=== PATIENT | female | born 1965 | race Caucasian/White ===

== ENCOUNTER 2017-04-16 01:37 | Emergency (ER) | payer OTHER ==
[~2017-04-16] VITALS: Ht 160 cm; Wt 80.7 kg
[2017-04-16 01:37] VITALS: BP_SYST 158
[2017-04-16] MEDS ORDERED: MULT PO (02:03)
[2017-04-16] MEDS ORDERED: LORazepam 2 MG/ML VIAL (FOR ER USE) IM ONE (02:15)
[2017-04-16] MEDS ORDERED: LORazepam 2 MG/ML VIAL (FOR ER USE) IVP ONE (03:30)
[2017-04-16] MEDS ORDERED: NACL 0.9% 1,000 ML IV ONE (03:30)
[2017-04-16 04:04] LABS: CALCIUM 9.8 mg/dL (8.4-11.0); CHLORIDE 106 mmol/L (98-107); CREATININE 0.87 mg/dL (0.55-1.30); GLUCOSE 114 mg/dL (70-99); SODIUM SERUM 135 mmol/L (136-145); UREA NITROGEN, BLOOD 24 mg/dL (8-21)
[2017-04-16 04:05] LABS: BARBITURATE, URINE NEGATIVE (NEG <=200); BENZODIAZEPINE, URINE NEGATIVE (NEG <=150); CANNABINOID, URINE POSITIVE (NEG <=50); COCAINE, URINE NEGATIVE (NEG <=150); METHAMPHETAMINES SCREEN,URINE POSITIVE (NEG <=500); OPIATE, URINE NEGATIVE (NEG <=100); PHENCYCLIDINE SCREEN,URINE NEGATIVE (NEG <=25); UR TRICYCLIC ANTIDEPRESSANTS NEGATIVE (NEG <=300); URINE AMPHETAMINE NEGATIVE (NEG <=500); URINE METHADONE NEGATIVE (NEG <=200); URINE OXYCODONE SCREEN NEGATIVE (NEG <=100); URINE PROPOXYPHENE SCREEN NEGATIVE (NEG <=300)
[2017-04-16 04:07] LABS: ANION GAP < 3 (5-15); GFR AFRICAN AMERICAN 88 mL/min (>90)
[2017-04-16 04:13] LABS: ASPARTATE AMINOTRANSFERASE 19 U/L (10-37); TOTAL BILIRUBIN 0.3 mg/dL (0.0-1.0)
[2017-04-16 04:14] LABS: ALANINE AMINOTRANSFERASE 28 U/L (12-78); ALBUMIN 3.9 g/dL (3.4-4.8)
[2017-04-16 04:20] VITALS: BP_SYST 131
[2017-04-16 04:22] LABS: BASOPHILS % (AUTO) 0.3 % (0.0-2.0); EOSINOPHILS # (AUTO) 0.1 K/uL (0.0-0.4); EOSINOPHILS % (AUTO) 0.9 % (0.0-4.0); HEMATOCRIT 41.9 % (36-48); HEMOGLOBIN 13.9 g/dL (12.0-16.0); LYMPHOCYTES % (AUTO) 31.1 % (20.5-51.5); MEAN CORPUSCULAR HEMOGLOBIN 30 pg (27-31); MEAN CORPUSCULAR HGB CONC 33 % (32-36); MEAN CORPUSCULAR VOLUME 89 fL (79.0-98.0); MONOCYTES # (AUTO) 0.6 K/uL (0.0-1.0); MONOCYTES % (AUTO) 5.7 % (1.7-9.3); NEUTROPHILS # (AUTO) 5.9 K/uL (1.8-7.7); PLATELET COUNT (AUTO) 266 K/uL (130-430); RED CELL DISTRIBUTION WIDTH 13.5 % (9.0-15.0); WHITE BLOOD COUNT (AUTO) 9.6 K/uL (4.8-10.8)
== END 2017-04-16 04:20 | disposition home or self-care (01) ==
LOC: SED 01:37
DX: F12.90 Cannabis use, unspecified, uncomplicated (principal); F15.10 Other stimulant abuse, uncomplicated; R03.0 Elevated blood-pressure reading, without diagnosis of hypertension; Z88.2 Allergy status to sulfonamides
CPT/HCPCS: 36415; 80053; 80307; 85025; 93005; 96361; 96372; 96374; 99285; J2060; J7030

== ENCOUNTER 2022-03-26 18:55 | Inpatient (IN) | payer OTHER ==
[~2022-03-26] VITALS: Ht 160 cm; Wt 84.8 kg
[~2022-03-26 18:55] MED LIST: MULT PO
[2022-03-26 19:27] VITALS: BP_SYST 149
[2022-03-26] MEDS ORDERED: NACL 0.9% 1,000 ML IV ONE (20:15)
[2022-03-26] MEDS ORDERED: ALBUTEROL SULFATE 0.083% 2.5 MG/3 ML VIAL.NEB INH ONE ×3 (20:15→22:45)
[2022-03-26] MEDS ORDERED: methylPREDNISolone SOD SUCC/PF 62.5 MG/ML VIAL IVP ONE (21:00)
[2022-03-26 21:14] LABS: BASOPHILS % (AUTO) 0.3 % (0.0-2.0); EOSINOPHILS # (AUTO) 0.3 K/uL (0.0-0.4); EOSINOPHILS % (AUTO) 4.9 % (0.0-4.0); HEMATOCRIT 39.8 % (36-48); HEMOGLOBIN 13.3 g/dL (12.0-16.0); LYMPHOCYTES # (AUTO) 3.3 K/uL (1.0-5.5); MEAN CORPUSCULAR HEMOGLOBIN 29 pg (27-31); MEAN CORPUSCULAR HGB CONC 33 % (32-36); MEAN CORPUSCULAR VOLUME 86 fL (79.0-98.0); MONOCYTES # (AUTO) 0.5 K/uL (0.0-1.0); NEUTROPHILS # (AUTO) 2.5 K/uL (1.8-7.7); NEUTROPHILS % (AUTO) 38.3 % (40.0-70.0); PLATELET COUNT (AUTO) 239 K/uL (130-430); RED BLOOD CELL COUNT(AUTO) 4.65 MIL/uL (4.2-6.2); RED CELL DISTRIBUTION WIDTH 14.6 % (9.0-15.0); WHITE BLOOD COUNT (AUTO) 6.6 K/uL (4.8-10.8)
[2022-03-26] MEDS ORDERED: IPRATROPIUM BROM 0.5 MG/2.5 ML VIAL.NEB (ATROVENT) INH ONE ×2 (21:30→22:45)
[2022-03-26 21:31] LABS: CREATININE 0.75 mg/dL (0.55-1.30)
[2022-03-26 21:44] LABS: ALBUMIN 3.5 g/dL (3.4-4.8); TOTAL BILIRUBIN 0.2 mg/dL (0.0-1.0)
[2022-03-26 21:54] LABS: LYMPHOCYTES % (AUTO) 49.5 % (20.5-51.5)
[2022-03-26] MEDS ORDERED: MAGNESIUM SULFATE 50 ML IV ONE (22:45)
[2022-03-27] MEDS ORDERED: BUDESONIDE 0.5 MG/2 ML AMPUL.NEB INH ONE
[2022-03-27] MEDS ORDERED: IPRATROPIUM/ALBUTEROL SULFATE 3 ML AMPUL.NEB (DUONEB) INH PRN
[2022-03-27] MEDS ORDERED: cefTRIAXone 1 GM IVPB PREMIX 50 ML IV ONE (02:08)
[2022-03-27] MEDS: cefTRIAXone 1 GM in D5W 50 ML IV SCH (02:19)
[2022-03-27] MEDS ORDERED: AZITHROMYCIN 500 MG/VIAL (ZITHROMAX) IV ONE (02:26)
[2022-03-27] MEDS: AZITHROMYCIN 500 MG in NS 250 ML IV SCH (02:45)
[2022-03-27 03:49] VITALS: BP_SYST 149
[2022-03-27] MEDS ORDERED: BUDESONIDE 0.5 MG/2 ML AMPUL.NEB INH SCH (09:00)
[2022-03-27] MEDS ORDERED: IPRATROPIUM/ALBUTEROL SULFATE 3 ML AMPUL.NEB (DUONEB) INH SCH (09:00)
[2022-03-27] MEDS: ACETAMINOPHEN 325 MG TABLET PO PRN (10:32)
[2022-03-27] MEDS: IPRATROPIUM/ALBUTEROL SULFATE 3 ML AMPUL.NEB (DUONEB) INH SCH ×3 (11:00→19:00)
[2022-03-27 12:12] VITALS: BP_SYST 136
[2022-03-27] MEDS ORDERED: methylPREDNISolone SOD SUCC/PF 62.5 MG/ML VIAL IVP ONE (17:45)
[2022-03-27] MEDS ORDERED: ENOXAPARIN SODIUM 30 MG/0.3 ML SYRINGE ONE (18:21)
[2022-03-27] MEDS: ENOXAPARIN SODIUM 30 MG/0.3 ML SYRINGE SUBCUT SCH (18:24)
[2022-03-27] MEDS: BUDESONIDE 0.5 MG/2 ML AMPUL.NEB INH SCH (19:00)
[2022-03-27 21:00] VITALS: BP_SYST 137
[2022-03-28 01:00] VITALS: BP_SYST 135
[2022-03-28] MEDS: AZITHROMYCIN 500 MG in NS 250 ML IV SCH (01:12)
[2022-03-28] MEDS: cefTRIAXone 1 GM in D5W 50 ML IV SCH ×2 (01:12→23:57)
[2022-03-28] MEDS: IPRATROPIUM/ALBUTEROL SULFATE 3 ML AMPUL.NEB (DUONEB) INH SCH ×4 (07:20→20:27)
[2022-03-28 08:00] VITALS: BP_SYST 129
[2022-03-28] MEDS: ENOXAPARIN SODIUM 30 MG/0.3 ML SYRINGE SUBCUT SCH (09:37)
[2022-03-28] MEDS: methylPREDNISolone SOD SUCC/PF 62.5 MG/ML VIAL IVP SCH ×2 (09:38→21:26)
[2022-03-28 09:55] LABS: ALBUMIN 3.3 g/dL (3.4-4.8); CALCIUM 8.7 mg/dL (8.4-11.0); CREATININE 0.7 mg/dL (0.55-1.30); TOTAL BILIRUBIN 0.3 mg/dL (0.0-1.0)
[2022-03-28 10:28] LABS: BASOPHILS % (AUTO) 0.1 % (0.0-2.0); HEMATOCRIT 38.3 % (36-48); HEMOGLOBIN 12.6 g/dL (12.0-16.0); LYMPHOCYTES % (AUTO) 11.7 % (20.5-51.5); MEAN CORPUSCULAR HEMOGLOBIN 28 pg (27-31); MEAN CORPUSCULAR HGB CONC 33 % (32-36); MEAN CORPUSCULAR VOLUME 86 fL (79.0-98.0); MONOCYTES # (AUTO) 0.6 K/uL (0.0-1.0); MONOCYTES % (AUTO) 3.6 % (1.7-9.3); NEUTROPHILS # (AUTO) 14.2 K/uL (1.8-7.7); NEUTROPHILS % (AUTO) 84.6 % (40.0-70.0); PLATELET COUNT (AUTO) 244 K/uL (130-430); RED BLOOD CELL COUNT(AUTO) 4.43 MIL/uL (4.2-6.2); RED CELL DISTRIBUTION WIDTH 14.8 % (9.0-15.0); WHITE BLOOD COUNT (AUTO) 16.8 K/uL (4.8-10.8)
[2022-03-28] MEDS: BUDESONIDE 0.5 MG/2 ML AMPUL.NEB INH SCH ×2 (11:17→20:27)
[2022-03-28 12:00] VITALS: BP_SYST 135
[2022-03-28] MEDS ORDERED: FAMOTIDINE 20 MG TABLET PO ONE (14:45)
[2022-03-28 16:00] VITALS: BP_SYST 132
[2022-03-28 21:19] VITALS: BP_SYST 117
[2022-03-28] MEDS: FAMOTIDINE 20 MG TABLET PO SCH (21:27)
[2022-03-29] MEDS: AZITHROMYCIN 500 MG in NS 250 ML IV SCH (00:04)
[2022-03-29] MEDS: IPRATROPIUM/ALBUTEROL SULFATE 3 ML AMPUL.NEB (DUONEB) INH SCH ×4 (07:05→20:07)
[2022-03-29] MEDS: BUDESONIDE 0.5 MG/2 ML AMPUL.NEB INH SCH ×2 (07:15→20:07)
[2022-03-29 07:32] LABS: CALCIUM 8.9 mg/dL (8.4-11.0); CREATININE 0.68 mg/dL (0.55-1.30)
[2022-03-29 07:39] LABS: BASOPHILS % (AUTO) 0.3 % (0.0-2.0); HEMOGLOBIN 12.6 g/dL (12.0-16.0); LYMPHOCYTES # (AUTO) 2.1 K/uL (1.0-5.5); LYMPHOCYTES % (AUTO) 13.3 % (20.5-51.5); MEAN CORPUSCULAR HEMOGLOBIN 28 pg (27-31); MEAN CORPUSCULAR HGB CONC 33 % (32-36); MEAN CORPUSCULAR VOLUME 85 fL (79.0-98.0); MONOCYTES # (AUTO) 0.5 K/uL (0.0-1.0); MONOCYTES % (AUTO) 3.2 % (1.7-9.3); NEUTROPHILS # (AUTO) 12.9 K/uL (1.8-7.7); NEUTROPHILS % (AUTO) 83.2 % (40.0-70.0); PLATELET COUNT (AUTO) 273 K/uL (130-430); RED BLOOD CELL COUNT(AUTO) 4.45 MIL/uL (4.2-6.2); RED CELL DISTRIBUTION WIDTH 14.9 % (9.0-15.0); WHITE BLOOD COUNT (AUTO) 15.5 K/uL (4.8-10.8)
[2022-03-29 08:00] VITALS: BP_SYST 125
[2022-03-29] MEDS: FAMOTIDINE 20 MG TABLET PO SCH ×2 (08:28→21:24)
[2022-03-29] MEDS: methylPREDNISolone SOD SUCC/PF 62.5 MG/ML VIAL IVP SCH ×2 (08:28→21:24)
[2022-03-29] MEDS: ENOXAPARIN SODIUM 30 MG/0.3 ML SYRINGE SUBCUT SCH (08:29)
[2022-03-29] MEDS ORDERED: BENZONATATE 100 MG CAPSULE (TESSALON) PO ONE (11:45)
[2022-03-29] MEDS: guaiFENesin 200 MG/CODEINE 20 MG/ 10 ML UDC PO PRN ×2 (12:09→21:23)
[2022-03-29] MEDS: BENZONATATE 100 MG CAPSULE (TESSALON) PO SCH ×2 (15:38→21:24)
[2022-03-29 16:00] VITALS: BP_SYST 131
[2022-03-29 20:00] VITALS: BP_SYST 151
[2022-03-29] MEDS: cefTRIAXone 1 GM in D5W 50 ML IV SCH (23:43)
[2022-03-30] MEDS: AZITHROMYCIN 500 MG in NS 250 ML IV SCH (00:42)
[2022-03-30] MEDS: ACETAMINOPHEN 325 MG TABLET PO PRN (01:53)
[2022-03-30 02:03] VITALS: BP_SYST 118
[2022-03-30 07:22] LABS: BASOPHILS # (AUTO) 0.1 K/uL (0.0-0.2); BASOPHILS % (AUTO) 0.6 % (0.0-2.0); HEMATOCRIT 39.5 % (36-48); HEMOGLOBIN 13.2 g/dL (12.0-16.0); LYMPHOCYTES # (AUTO) 1.7 K/uL (1.0-5.5); LYMPHOCYTES % (AUTO) 13.5 % (20.5-51.5); MEAN CORPUSCULAR HEMOGLOBIN 28 pg (27-31); MEAN CORPUSCULAR HGB CONC 33 % (32-36); MEAN CORPUSCULAR VOLUME 84 fL (79.0-98.0); MONOCYTES # (AUTO) 0.3 K/uL (0.0-1.0); MONOCYTES % (AUTO) 2.1 % (1.7-9.3); NEUTROPHILS # (AUTO) 10.5 K/uL (1.8-7.7); NEUTROPHILS % (AUTO) 83.8 % (40.0-70.0); PLATELET COUNT (AUTO) 268 K/uL (130-430); RED BLOOD CELL COUNT(AUTO) 4.68 MIL/uL (4.2-6.2); RED CELL DISTRIBUTION WIDTH 14.8 % (9.0-15.0); WHITE BLOOD COUNT (AUTO) 12.5 K/uL (4.8-10.8)
[2022-03-30 08:00] VITALS: BP_SYST 138
[2022-03-30 08:14] LABS: CALCIUM 8.9 mg/dL (8.4-11.0); CREATININE 0.8 mg/dL (0.55-1.30)
[2022-03-30] MEDS: BUDESONIDE 0.5 MG/2 ML AMPUL.NEB INH SCH ×2 (08:19→19:32)
[2022-03-30] MEDS: IPRATROPIUM/ALBUTEROL SULFATE 3 ML AMPUL.NEB (DUONEB) INH SCH ×4 (08:19→19:31)
[2022-03-30] MEDS: methylPREDNISolone SOD SUCC/PF 62.5 MG/ML VIAL IVP SCH (08:25)
[2022-03-30 10:22] VITALS: BP_SYST 138
[2022-03-30] MEDS: BENZONATATE 100 MG CAPSULE (TESSALON) PO SCH ×3 (11:52→21:09)
[2022-03-30] MEDS: ENOXAPARIN SODIUM 30 MG/0.3 ML SYRINGE SUBCUT SCH (11:52)
[2022-03-30] MEDS: FAMOTIDINE 20 MG TABLET PO SCH ×2 (11:53→21:09)
[2022-03-30 12:00] VITALS: BP_SYST 141
[2022-03-30 16:00] VITALS: BP_SYST 135
[2022-03-30 20:00] VITALS: BP_SYST 139
[2022-03-30] MEDS: METHYLPREDNISOLONE SOD SUCC 40 MG/ML VIAL IVP SCH (21:09)
[2022-03-30] MEDS: guaiFENesin 200 MG/CODEINE 20 MG/ 10 ML UDC PO PRN (21:11)
[2022-03-31] VITALS: BP_SYST 135
[2022-03-31] MEDS: cefTRIAXone 1 GM in D5W 50 ML IV SCH (00:41)
[2022-03-31] MEDS: AZITHROMYCIN 500 MG in NS 250 ML IV SCH (01:29)
[2022-03-31 04:00] VITALS: BP_SYST 128
[2022-03-31] MEDS: IPRATROPIUM/ALBUTEROL SULFATE 3 ML AMPUL.NEB (DUONEB) INH SCH ×4 (07:44→21:07)
[2022-03-31] MEDS: BUDESONIDE 0.5 MG/2 ML AMPUL.NEB INH SCH ×2 (07:45→21:07)
[2022-03-31 08:00] VITALS: BP_SYST 143
[2022-03-31] MEDS: ENOXAPARIN SODIUM 30 MG/0.3 ML SYRINGE SUBCUT SCH (08:32)
[2022-03-31] MEDS: METHYLPREDNISOLONE SOD SUCC 40 MG/ML VIAL IVP SCH (08:32)
[2022-03-31] MEDS: FAMOTIDINE 20 MG TABLET PO SCH (08:32)
[2022-03-31] MEDS: BENZONATATE 100 MG CAPSULE (TESSALON) PO SCH ×2 (08:32→17:30)
[2022-03-31 12:00] VITALS: BP_SYST 147
[2022-03-31 16:00] VITALS: BP_SYST 143
[2022-04-01] MEDS: BENZONATATE 100 MG CAPSULE (TESSALON) PO SCH ×4 (00:50→21:22)
[2022-04-01] MEDS: FAMOTIDINE 20 MG TABLET PO SCH ×3 (00:51→21:22)
[2022-04-01] MEDS: METHYLPREDNISOLONE SOD SUCC 40 MG/ML VIAL IVP SCH ×3 (00:52→21:22)
[2022-04-01] MEDS: cefTRIAXone 1 GM in D5W 50 ML IV SCH ×2 (00:53→23:32)
[2022-04-01] MEDS: guaiFENesin 200 MG/CODEINE 20 MG/ 10 ML UDC PO PRN (01:03)
[2022-04-01] MEDS: ACETAMINOPHEN 325 MG TABLET PO PRN (01:05)
[2022-04-01 06:39] LABS: BASOPHILS # (AUTO) 0.1 K/uL (0.0-0.2); BASOPHILS % (AUTO) 0.5 % (0.0-2.0); EOSINOPHILS % (AUTO) 0.1 % (0.0-4.0); HEMATOCRIT 42.4 % (36-48); HEMOGLOBIN 14.3 g/dL (12.0-16.0); LYMPHOCYTES # (AUTO) 2.3 K/uL (1.0-5.5); LYMPHOCYTES % (AUTO) 16.9 % (20.5-51.5); MEAN CORPUSCULAR HEMOGLOBIN 29 pg (27-31); MEAN CORPUSCULAR HGB CONC 34 % (32-36); MEAN CORPUSCULAR VOLUME 85 fL (79.0-98.0); MONOCYTES # (AUTO) 0.6 K/uL (0.0-1.0); MONOCYTES % (AUTO) 4.4 % (1.7-9.3); NEUTROPHILS # (AUTO) 10.6 K/uL (1.8-7.7); NEUTROPHILS % (AUTO) 78.1 % (40.0-70.0); PLATELET COUNT (AUTO) 277 K/uL (130-430); RED BLOOD CELL COUNT(AUTO) 4.97 MIL/uL (4.2-6.2); RED CELL DISTRIBUTION WIDTH 14.8 % (9.0-15.0); WHITE BLOOD COUNT (AUTO) 13.6 K/uL (4.8-10.8)
[2022-04-01] MEDS: IPRATROPIUM/ALBUTEROL SULFATE 3 ML AMPUL.NEB (DUONEB) INH SCH ×4 (07:18→19:42)
[2022-04-01] MEDS: BUDESONIDE 0.5 MG/2 ML AMPUL.NEB INH SCH ×2 (07:20→19:51)
[2022-04-01 07:46] LABS: ALANINE AMINOTRANSFERASE 21 U/L (12-78); ALBUMIN 3.4 g/dL (3.4-4.8); ANION GAP 10 (5-15); ASPARTATE AMINOTRANSFERASE 10 U/L (10-37); CALCIUM 8.3 mg/dL (8.4-11.0); CHLORIDE 100 mmol/L (98-107); CREATININE 0.89 mg/dL (0.55-1.30); GFR AFRICAN AMERICAN 84 mL/min (>90); GLUCOSE 178 mg/dL (70-99); TOTAL BILIRUBIN 0.3 mg/dL (0.0-1.0); UREA NITROGEN, BLOOD 21 mg/dL (8-21)
[2022-04-01 08:00] VITALS: BP_SYST 144
[2022-04-01] MEDS: ENOXAPARIN SODIUM 30 MG/0.3 ML SYRINGE SUBCUT SCH (09:19)
[2022-04-01] MEDS ORDERED: FAMO20TA8 PO (11:00)
[2022-04-01] MEDS ORDERED: PHEDM120 PO (11:00)
[2022-04-01] MEDS ORDERED: DOXY100C5 PO (11:00)
[2022-04-01] MEDS ORDERED: PRED20TA PO (11:00)
[2022-04-01] MEDS ORDERED: IPRA3AMP9 INH (11:00)
[2022-04-01 11:50] VITALS: BP_SYST 128
[2022-04-01 16:15] VITALS: BP_SYST 135
[2022-04-01 20:50] VITALS: BP_SYST 125
[2022-04-02] MEDS: ACETAMINOPHEN 325 MG TABLET PO PRN (00:32)
[2022-04-02 01:12] VITALS: BP_SYST 109
[2022-04-02] MEDS: IPRATROPIUM/ALBUTEROL SULFATE 3 ML AMPUL.NEB (DUONEB) INH SCH ×3 (07:32→15:04)
[2022-04-02] MEDS: BUDESONIDE 0.5 MG/2 ML AMPUL.NEB INH SCH (07:35)
[2022-04-02 08:11] VITALS: BP_SYST 132
[2022-04-02] MEDS: BENZONATATE 100 MG CAPSULE (TESSALON) PO SCH ×2 (09:15→15:09)
[2022-04-02] MEDS: ENOXAPARIN SODIUM 30 MG/0.3 ML SYRINGE SUBCUT SCH (09:15)
[2022-04-02] MEDS: FAMOTIDINE 20 MG TABLET PO SCH (09:15)
[2022-04-02] MEDS: METHYLPREDNISOLONE SOD SUCC 40 MG/ML VIAL IVP SCH (10:24)
[2022-04-02 12:00] VITALS: BP_SYST 140
[2022-04-02 12:51] VITALS: BP_SYST 140
[2022-04-02 16:05] VITALS: BP_SYST 141
== END 2022-04-02 19:00 | disposition home health service (06) | DRG 871 ==
LOC: SED 18:55 → STU 22:58 → SMU 03-27 10:00 → STU 03-27 11:08 → SMU 03-27 15:30
PROVIDERS: ADMIT Internal Medicine; ATTEND Internal Medicine
DX: A41.9 Sepsis, unspecified organism (principal); J18.0 Bronchopneumonia, unspecified organism; J96.01 Acute respiratory failure with hypoxia; J45.901 Unspecified asthma with (acute) exacerbation; E66.9 Obesity, unspecified; Z20.822 Contact with and (suspected) exposure to COVID-19; Z88.2 Allergy status to sulfonamides; Z79.899 Other long term (current) drug therapy; Z68.33 Body mass index [BMI] 33.0-33.9, adult
CPT/HCPCS: 36415; 71045; 71250-TC; 76376; 80048; 80053; 83880; 84484; 85025; 85651-TC; 86140; 87040; 87070-TC; 87205-TC; 93005; 94640; 94760; 96361; 96365; 96375; 99285; G0378; J0456; J0696; J1030; J1650; J2930; J3475; J7030; J7050; J7060; J7613; J7626